=== PATIENT | female | born 1995 | race African-American/Black ===

== ENCOUNTER 2017-01-12 15:47 | Emergency (ER) | payer MEDICAID, OTHER ==
[~2017-01-12] VITALS: Ht 162.6 cm; Wt 49.4 kg
[~2017-01-12 15:47] MED LIST: ACETAMINOPHEN-1 EAC1 ORAL; ALBUTEROL SULF8.5 GM INH; ALBUTEROL2.5 MG/3 M HHN; ALBUTEROL2.5 MG/3 M INH; AMOXICILLIN500 MG ORAL; AUGMENTIN 875-1 EAC1 ORAL; AZITHROMYCIN250 MG ORAL; MACROBID100 MG ORAL; NKM; NORCO 5-325 TA1 EACH ORAL; ONDANSETRON ODT4 MG ORAL; PREDNISONE20 M1 PO; PREDNISONE20 MG ORAL; PROAIR HFA8.5 GM INH; PROMETHAZINE-C118 M1 ORAL; ZITHROMAX250 MG ORAL
[2017-01-12] MEDS ORDERED: Albuterol ud Inhalation HHN ONE (16:00)
[2017-01-12] MEDS ORDERED: PredniSONE 20mg tab ORAL ONE (16:00)
[2017-01-12] MEDS ORDERED: PSEUDOEPHEDRINE30 MG PO (16:02)
[2017-01-12] MEDS ORDERED: PREDNISONE20 MG ORAL (16:02)
[2017-01-12] MEDS ORDERED: VENTOLIN HFA18 GM INH (16:02)
[2017-01-12] MEDS ORDERED: FLONASE ALLERG9.9 ML NS (16:02)
--- NOTE | 2017-01-12 16:03 | Emergency Room Report ---
History of Present Illness General Chief Complaint: Asthma Source: Patient Present Illness HPI 21YOF [employer] patient with 2-3 days URI infection - sinus congestion, rhinorrhea, sore throat Today at work, wheezing, shortnes of breath History of Asthma. Non-smoker Doesnt have inhaler d/t no recent exacerbation No history of intubation/BIPAP Not on any other asthma meds Denies cough, fever/chills, sick contacts, other medical problems Allergies: Coded Allergies: IBUPROFEN (Verified Adverse Reaction, Mild, vomiting, 06/23/15) Patient History Past Medical History: asthma Past Surgical History: none Pertinent Family History: none Social History: Denies: smoking, alcohol use, drug use Last Menstrual Period: 01/02/17 Now: No : 0 Para: 0 Immunizations: UTD Reviewed Nursing Documentation: PMH: Agreed, PSxH: Agreed Nursing Documentation-PMH Past Medical History: No Stated History Hx Asthma: Yes Review of Systems All Other Systems: negative except mentioned in HPI Physical Exam Vital Signs Date Time Temp Pulse Resp B/P (MAP) Pulse Ox O2 Delivery O2 Flow Rate FiO2 01/12/17 15:50 98.2 107 20 126/78 99 Room Air Sp02 EP Interpretation: reviewed, normal General Appearance: normal inspection, well appearing, no apparent distress, alert, GCS 15, non-toxic Head: normocephalic, atraumatic Eyes: bilateral eye PERRL, bilateral eye EOMI ENT: normal ENT inspection, hearing grossly normal, normal voice Neck: normal inspection, full range of motion, supple, no bony tend Respiratory: normal inspection, speaking full sentences, wheezing Cardiovascular #1: regular rate, rhythm, no edema Gastrointestinal: normal inspection, normal bowel sounds, non tender, soft, no guarding, no hernia Genitourinary: no CVA tenderness Musculoskeletal: normal inspection, back normal, normal range of motion, Malaika' s Sign negative Neurologic: normal inspection, alert, oriented x3, responsive, frame feeder III-XII nml as tested, motor strength/tone normal, speech normal Psychiatric: normal inspection, judgement/insight normal, mood/affect normal Medical Decision Making Diagnostic Impression: Primary Impression: Asthma Qualified Codes: J45.21 - Mild intermittent asthma with (acute) exacerbation ER Course Mild asthma exacerbation VSS. Afebrile Not septic. No systemic illness Improved with nebs, steroids Rx ventolin, prednisone, sudafed/flonase for URI symptoms PMD followup as needed Return to ER for worsening symptoms Dc home Last Vital Signs Date Time Temp Pulse Resp B/P (MAP) Pulse Ox O2 Delivery O2 Flow Rate FiO2 01/12/17 15:50 98.2 107 20 126/78 99 Room Air Status: improved Disposition: HOME, SELF-CARE Condition: Improved Scripts Fluticasone Propionate (Flonase Allergy Relief) 9.9 Ml [place].susp 9.9 ML NS BID for 7 Days, #1 UNIT Prov: ALE BELL M.D. 01/12/17 Pseudoephedrine Hcl* (SUDAFED*) 30 Mg Tablet 30 MG PO Q6H for 3 Days, #10 TAB Prov: ALE BELL M.D. 01/12/17 Prednisone* (PREDNISONE*) 20 Mg Tablet 40 MG ORAL DAILY for 3 Days, #6 TAB Prov: ALE BELL M.D. 01/12/17 Albuterol Sulfate (VENTOLIN HFA) 18 Gm Hfa.aer.ad 1 PUFF INH EVERY 6 HOURS for 7 Days, #18 GM 0 Refills Prov: ALE BELL M.D. 01/12/17 Patient Instructions: Asthma, Adult Additional Instructions: - Take prednisone once daily next 3 days starting Monday - Use ventolin inhaler as needed for short of breath, wheezing - Use flonase nasal spray twice day to decongest your nose - Can also take sudafed DURING the day to decongest - Return to ER for worsening symptoms ALE BELL M.D. Jan 12, 2017 16:03
[2017-01-12 16:07] VITALS: BP 126/78
[2017-01-12 16:40] VITALS: BP 124/78
== END 2017-01-12 16:43 | disposition home or self-care (01) ==
LOC: EMR 16:05
DX: J45.21 Mild intermittent asthma with (acute) exacerbation (principal); Z88.6 Allergy status to analgesic agent
CPT/HCPCS: 94640; 94664; 99284

== ENCOUNTER 2017-04-12 09:08 | Emergency (ER) | payer MEDICAID ==
[~2017-04-12] VITALS: Ht 162.6 cm; Wt 50.8 kg
[~2017-04-12 09:08] MED LIST changes: +FLONASE ALLERG9.9 ML NS; +PSEUDOEPHEDRINE30 MG PO; +VENTOLIN HFA18 GM INH
[2017-04-12 09:20] VITALS: BP 120/86
[2017-04-12] MEDS ORDERED: Acetaminophen 500mg (ES) tab ORAL ONE (09:45)
[2017-04-12] MEDS ORDERED: Cyclobenzaprine 10mg Tab ORAL ONE (09:45)
[2017-04-12] MEDS ORDERED: TYLENOL EXTRA500 MG ORAL (09:53)
[2017-04-12] MEDS ORDERED: CYCLOBENZAPRINE10 MG ORAL (09:53)
[2017-04-12 10:07] VITALS: BP 130/89
--- NOTE | 2017-04-12 10:10 | Emergency Room Report ---
History of Present Illness General Chief Complaint: Pain Source: Patient Present Illness HPI 21-year-old female presents ED for evaluation. Patient states she's been having upper back pain for the last 2 weeks. Denies injury or trauma. 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 States pain is throbbing, 10 out of 10 , radiating from the upper back down the shoulder blade. Denies chest pain or shortness of breath. Pain was worse with twisting or bending. Her grandfather is a population geneticist and states that it is likely a muscle strain. No other aggravating relieving factors. Denies any other associated symptoms Allergies: Coded Allergies: IBUPROFEN (Verified Adverse Reaction, Mild, vomiting, 06/23/15) Patient History Past Medical History: asthma Past Surgical History: none Pertinent Family History: none Social History: Denies: smoking, alcohol use, drug use Last Menstrual Period: 04/08/17 Now: No : 0 Para: 0 Immunizations: UTD Reviewed Nursing Documentation: PMH: Agreed, PSxH: Agreed Nursing Documentation-PMH Past Medical History: No History, Except For Hx Asthma: Yes Review of Systems All Other Systems: negative except mentioned in HPI Physical Exam Vital Signs Date Time Temp Pulse Resp B/P (MAP) Pulse Ox O2 Delivery O2 Flow Rate FiO2 04/12/17 09:16 97.7 95 18 120/86 100 Room Air Sp02 EP Interpretation: reviewed, normal General Appearance: no apparent distress, alert, GCS 15, non-toxic Head: normocephalic Eyes: bilateral eye normal inspection, bilateral eye PERRL ENT: normal ENT inspection Neck: full range of motion, no bony tend, supple/symm/no masses Respiratory: chest non-tender, lungs clear, normal breath sounds, speaking full sentences Cardiovascular #1: regular rate, rhythm, no edema Gastrointestinal: normal inspection Rectal: deferred Genitourinary: no CVA tenderness Musculoskeletal: tender - TTP over L trapezius muscle Neurologic: alert, oriented x3, responsive, motor strength/tone normal, sensory intact, speech normal Psychiatric: normal inspection Skin: normal inspection Lymphatic: normal inspection Medical Decision Making Diagnostic Impression: Primary Impression: Upper back strain Qualified Codes: S29.012A - Strain of muscle and tendon of back wall of thorax , initial encounter Last Vital Signs Date Time Temp Pulse Resp B/P (MAP) Pulse Ox O2 Delivery O2 Flow Rate FiO2 04/12/17 09:20 97.7 18 120/86 100 Room Air 04/12/17 09:16 95 Status: improved Disposition: HOME, SELF-CARE Condition: Stable Scripts Cyclobenzaprine Hcl* (FLEXERIL*) 10 Mg Tablet 10 MG ORAL TID Y for Muscle Spasm, #20 TAB Prov: DANIEL ARRINGTON M.D. 04/12/17 Acetaminophen* (TYLENOL EXTRA STRENGTH*) 500 Mg Tablet 500 MG ORAL Q6H Y for Mild Pain/Temp > 100.5, #30 TAB 0 Refills Prov: DANIEL ARRINGTON M.D. 04/12/17 Referrals: DELGADO AYALA,REFERRING (PCP) Departure Forms: Return to Work Return to Work Date: Apr 14, 2017 Work Restrictions: No Heavy Lifting Patient Instructions: Muscle Strain, [id number] DANIEL ARRINGTON M.D. Apr 12, 2017 10:10
== END 2017-04-12 10:07 | disposition home or self-care (01) ==
LOC: EMR 09:50
DX: S29.012A Strain of muscle and tendon of back wall of thorax, initial encounter (principal); X58.XXXA Exposure to other specified factors, initial encounter; Y92.89 Other specified places as the place of occurrence of the external cause; Z88.6 Allergy status to analgesic agent
CPT/HCPCS: 99283

== ENCOUNTER 2018-06-10 11:08 | Emergency (ER) | payer MEDICAID, OTHER ==
[~2018-06-10] VITALS: Ht 162.6 cm; Wt 53.5 kg
[~2018-06-10 11:08] MED LIST changes: +CYCLOBENZAPRINE10 MG ORAL; +TYLENOL EXTRA500 MG ORAL
[2018-06-10 11:16] VITALS: BP 115/73
--- NOTE | 2018-06-10 11:26 | NUR ---
ED Nurse Note: Pt c/o left 4th digit laceration after accidentally cutting her finger with a slicer happened at work today. No active bleeding.
[2018-06-10] MEDS ORDERED: Lidocaine 1% 10mg/ml/Epi 0.005mg/ml 30ml vial INJ ONE ×2 (11:27→11:30)
--- NOTE | 2018-06-10 11:40 | NUR ---
ED Nurse Note: Left 4th digit soaked with lidocaine with epi x 10mins then cleaned with sterile water and wrapped with finger tube dressing.
--- NOTE | 2018-06-10 11:50 | Emergency Room Report ---
History of Present Illness General Chief Complaint: Laceration Source: Patient Present Illness HPI Patient was using a meat dresser. She is sliced off part of her left ring finger tip. Bleeding was controlled with direct pressure. She is here for wound care. No numbness or decreased range of motion. Tetanus is up-to-date. Patient is right-handed. She denies any other medical problems. Allergies: Coded Allergies: IBUPROFEN (Verified Adverse Reaction, Mild, vomiting, 06/23/15) Patient History Social History: Denies: smoking Social History Narrative Works at [employer] Now: No Reviewed Nursing Documentation: PMH: Agreed; PSxH: Agreed Nursing Documentation-PMH Past Medical History: No History, Except For Hx Asthma: Yes Review of Systems Constitutional: Denies: fever Musculoskeletal: Reports: see HPI Skin: Reports: see HPI Neurological: Denies: numbness Hematologic/Lymphatic: Reports: see HPI Physical Exam Vital Signs Date Time Temp Pulse Resp B/P (MAP) Pulse Ox O2 Delivery O2 Flow Rate FiO2 06/10/18 11:16 97.7 77 19 115/73 97 Room Air Sp02 EP Interpretation: reviewed, normal General Appearance: well appearing, no apparent distress Head: normocephalic, atraumatic Eyes: bilateral eye normal inspection, bilateral eye PERRL ENT: hearing grossly normal, normal voice, moist mucus membranes Neck: full range of motion, supple Respiratory: no respiratory distress, speaking full sentences Gastrointestinal: normal inspection Musculoskeletal: gait/station normal, normal range of motion Neurologic: alert, oriented x3, grossly normal Psychiatric: mood/affect normal Skin: other - Avulsion left ring finger 1/2 x 1 cm Medical Decision Making Diagnostic Impression: Primary Impression: Avulsion left ring finger Additional Impression: Finger avulsion Qualified Codes: S61.209A - Unspecified open wound of unspecified finger without damage to nail, initial encounter ER Course Patient presents after finger tip avulsion in a meat dresser. This needs cleaning and proper dressing. Wound was cleaned and dressed and the patient tolerated this well. Treatment plan discussed with patient. Patient stable for outpatient observation and treatment. Last Vital Signs Date Time Temp Pulse Resp B/P (MAP) Pulse Ox O2 Delivery O2 Flow Rate FiO2 06/10/18 12:38 98.0 68 20 122/80 99 Room Air Status: improved Disposition: HOME, SELF-CARE Condition: Improved Scripts Bacitracin (Bacitracin) 28.4 Gm Oint...g. 1 APPLIC TOPIC BID, #20 GM Prov: Shahab Barron MD 06/10/18 Acetaminophen (Tylenol) 325 Mg Tablet 650 MG ORAL Q6H PRN for Prn Pain/Headache/Temp > 101, #20 TAB 0 Refills Prov: Shahab Barron MD 06/10/18 Shahab Barron MD Jun 10, 2018 11:49
[2018-06-10] MEDS ORDERED: BACITRACIN15 GM TOPIC (11:53)
[2018-06-10] MEDS ORDERED: TYLENOL325 MG ORAL (11:53)
[2018-06-10 12:38] VITALS: BP 122/80
--- NOTE | 2018-06-10 12:38 | NUR ---
ED Nurse Note: Pt cleared by ER MD for discharge. ACI/prescription was given and explained to pt and verbalized understanding of teachings. All medical devices such as ID band removed. Pt is AAO x4, ambulatory and left with all personal belongings.
== END 2018-06-10 15:27 | disposition home or self-care (01) ==
LOC: EMR 12:30
DX: S61.205A Unspecified open wound of left ring finger without damage to nail, initial encounter (principal); W27.8XXA Contact with other nonpowered hand tool, initial encounter; Y92.511 Restaurant or cafe as the place of occurrence of the external cause; Y99.0 Civilian activity done for income or pay
CPT/HCPCS: 99283

== ENCOUNTER 2018-07-17 08:27 | Emergency (ER) | payer MEDICAID, OTHER ==
[~2018-07-17] VITALS: Ht 162.6 cm; Wt 52.6 kg
[~2018-07-17 08:27] MED LIST changes: +BACITRACIN15 GM TOPIC; +TYLENOL325 MG ORAL
--- NOTE | 2018-07-17 08:38 | NUR ---
ED Nurse Note: PT WALKED IN TO ER TODAY FROM HOME. AOX4. PT C/O NONPRODUCTIVE COUGH AND CONGESTION X 2 DAYS. LUNG SOUNDS CLEAR IN ALL LOBES. NO SIGNS OF RESPIRATORY DISTRESS OR RETRACTIONS NOTED. RR16 @ 99% O2 SAT ON RA.
[2018-07-17 08:39] VITALS: BP 120/82
--- NOTE | 2018-07-17 08:50 | Emergency Room Report ---
History of Present Illness General Chief Complaint: Upper Respiratory Illness Source: Patient Present Illness HPI Patient presents with complaints of cough and congestion over the past 2 days patient also has borderline asthma and to get exacerbated when she catches a cold Patient complains of congestion Denies any chest pain and eyes any vomiting or diarrhea Patient reports subjective fever 2 days ago improving now Denies any neck pain or photophobia denies any recent travel Allergies: Coded Allergies: IBUPROFEN (Verified Adverse Reaction, Mild, vomiting, 06/23/15) Patient History Past Medical History: see triage record Pertinent Family History: none Last Menstrual Period: 06/29/18 Now: No : 2 Para: 0 Reviewed Nursing Documentation: PMH: Agreed; PSxH: Agreed Nursing Documentation-PMH Past Medical History: No History, Except For Hx Asthma: Yes Review of Systems All Other Systems: negative except mentioned in HPI Physical Exam Vital Signs Date Time Temp Pulse Resp B/P (MAP) Pulse Ox O2 Delivery O2 Flow Rate FiO2 07/17/18 08:32 98.4 88 18 122/85 100 Room Air Sp02 EP Interpretation: reviewed, normal General Appearance: well appearing, no apparent distress Head: normocephalic, atraumatic Eyes: bilateral eye PERRL, bilateral eye EOMI ENT: hearing grossly normal, normal pharynx, TMs + canals normal, uvula midline Neck: full range of motion, supple, no meningismus, no bony tend Respiratory: lungs clear, normal breath sounds, no rhonchi, no respiratory distress, no retraction, no accessory muscle use Cardiovascular #1: normal peripheral pulses, regular rate, rhythm, no edema, no gallop, no JVD, no murmur Gastrointestinal: normal bowel sounds, non tender, soft, no mass, no organomegaly, non-distended, no guarding, no hernia, no pulsatile mass, no rebound Musculoskeletal: normal inspection Neurologic: oriented x3, responsive, weed inspector III-XII nml as tested, motor strength/ tone normal, sensory intact Psychiatric: mood/affect normal Skin: normal color, no rash, warm/dry, palpation normal Lymphatic: normal inspection, no adenopathy Medical Decision Making Diagnostic Impression: Primary Impression: Upper respiratory infection ER Course Multiple differentials including but not limited to pneumonia, bronchitis, asthma exacerbation considered Patient does not reveal any signs of respiratory distress does not meet criteria for acute imaging And will have initial conservative outpatient trial Last Vital Signs Date Time Temp Pulse Resp B/P (MAP) Pulse Ox O2 Delivery O2 Flow Rate FiO2 07/17/18 08:39 82 16 Room Air 07/17/18 08:39 98.2 120/82 99 Status: improved Disposition: HOME, SELF-CARE Condition: Improved Scripts Promethazine Hcl (PROMETHAZINE HCL*) 6.25 Mg/5 Ml Syrup 5 ML ORAL Q8H for 5 Days, #120 ML 0 Refills Prov: Julissa Winkler DO 07/17/18 Additional Instructions: Patient is provided with the discharge instructions notified to follow up with primary doctor in the next 2-3 days otherwise return to the er with any worsening symptoms. Please note that this report is being documented using [employer] technology. This can lead to erroneous entry secondary to incorrect interpretation by the dictating instrument. Julissa Winkler DO Jul 17, 2018 08:50
[2018-07-17] MEDS ORDERED: Ipratropium 0.02% Inh Soln 2.5ml UD HHN ONE (09:00)
[2018-07-17] MEDS ORDERED: Albuterol ud Inhalation HHN ONE (09:00)
[2018-07-17] MEDS ORDERED: PROMETHAZI6.25 MG/1 ORAL (09:19)
[2018-07-17 09:24] VITALS: BP 124/86
--- NOTE | 2018-07-17 09:25 | NUR ---
ED Nurse Note: PT LAYING PEACEFULLY IN BED IN NAD. AO4. PRESCRIPTION AND DISCHARGE PAPERWORK EXPLAINED TO PT. PT VERBALIZES UNDERSTANDING AND ALL QUESTIONS WERE ANSWERED. PRESCRIPTIONS AND DISCHARGE PAPERWORK GIVEN TO PT AND ID WRISTBAND REMOVED. PT WALKED OUT OF ER WITH STEADY GAIT AND ALL BELONGINGS.
== END 2018-07-17 09:26 | disposition home or self-care (01) ==
LOC: EMR 08:46
DX: J06.9 Acute upper respiratory infection, unspecified (principal); Z88.6 Allergy status to analgesic agent
CPT/HCPCS: 94640; 99284

== ENCOUNTER 2018-09-11 12:02 | Emergency (ER) | payer MEDICAID ==
[~2018-09-11] VITALS: Ht 162.6 cm; Wt 52.2 kg
[~2018-09-11 12:02] MED LIST changes: +PROMETHAZI6.25 MG/1 ORAL
--- NOTE | 2018-09-11 12:26 | NUR ---
ED Nurse Note: PT WALKED IN TO ER TODAY FROM HOME. AOX4. PT C/O PAINFUL "BUMP ON VAGINA" X 2 DAYS AGO. PT RATES PAIN 10/10. PT DENIES VAGINAL DISCHARGE, DRAINAGE, SWELLING, PAINFUL URINATION, BURNING SENSATION, OR INCREASE IN URINARY FREQUENCY.
[2018-09-11 12:28] VITALS: BP 108/74
--- NOTE | 2018-09-11 12:50 | Emergency Room Report ---
History of Present Illness General Chief Complaint: Skin Rash/Abscess Source: Patient Present Illness HPI 23-year-old female presents emergency department complaining of 9 out of 10 in severity pain, tenderness, progressive swelling to the localized area just under the left vaginal labia 3 days.She reports initially feeling a small bump that felt like a pimple which has progressed to a larger amount of swelling which is now painful even when she sitting. She reports palpation and sitting exacerbate her pain she denies any relieving factors. Patient denies vaginal discharge, lesions elsewhere on the body, swollen tender lymph nodes fevers or chills.Pt. reports that she may be . Allergies: Coded Allergies: IBUPROFEN (Verified Adverse Reaction, Mild, vomiting, 06/23/15) Patient History Past Medical History: see triage record Past Surgical History: none Last Menstrual Period: 09/02/18 Now: No - possible : 2 Para: 0 Reviewed Nursing Documentation: PMH: Agreed; PSxH: Agreed Nursing Documentation-PMH Past Medical History: No History, Except For Hx Asthma: Yes Review of Systems All Other Systems: negative except mentioned in HPI Physical Exam Vital Signs Date Time Temp Pulse Resp B/P (MAP) Pulse Ox O2 Delivery O2 Flow Rate FiO2 09/11/18 12:09 98.1 93 18 103/70 97 Room Air Sp02 EP Interpretation: reviewed, normal General Appearance: no apparent distress, alert, GCS 15, non-toxic Head: normocephalic, atraumatic Eyes: bilateral eye normal inspection, bilateral eye PERRL ENT: hearing grossly normal, normal voice Neck: full range of motion Respiratory: lungs clear, normal breath sounds, speaking full sentences Cardiovascular #1: regular rate, rhythm Musculoskeletal: gait/station normal, normal range of motion, non-tender Neurologic: alert, oriented x3, responsive, motor strength/tone normal, sensory intact, normal gait, speech normal, grossly normal Psychiatric: judgement/insight normal Skin: normal color, no rash, warm/dry, well hydrated, other - 1cm palpable abscess with some fulctuance just under the left external vaginal labia. some erythema is noted, moderate tenderness, no LAD, no blisters or vesicles. Lymphatic: no adenopathy Medical Decision Making PA Attestation Dr. Blake is my supervising Physician whom patient management has been discussed with. Diagnostic Impression: Primary Impression: Abscess ER Course 23-year-old female presents emergency department complaining of 9 out of 10 in severity pain, tenderness, progressive swelling to the localized area just under the left vaginal labia 3 days.She reports initially feeling a small bump that felt like a pimple which has progressed to a larger amount of swelling which is now painful even when she sitting. She reports palpation and sitting exacerbate her pain she denies any relieving factors. Patient denies vaginal discharge, lesions elsewhere on the body, swollen tender lymph nodes fevers or chills.Pt. reports that she may be . Ddx considered but are not limited to cellulitis, abscess, cystic acne, necrotizing fasciitis, insect bite. Vital signs: are WNL, pt. is afebrile H&PE are most consistent with vaginal labial abscess requiring I & D ORDERS: -Urine HCG: ED INTERVENTIONS: -I & D.------ PT. was very rude and disrespectful during the procedure. pt. was very aggravated about having to wait between steps of the procedures, and nurse bleacher [employer] needed to triage incoming patients off the ambulances with emergent medical conditions. I attempted to educated the pt. on the triage process and patient flow in the ED however pt. was not responsive. Pt. reported pain with initiation of the I &D procedure, several attempts were made to place additional anesthesia however pt. kept declining saying she is in a hurry and that it will take too long. DISCHARGE: At this time pt. is stable for d/c to home. Will provide printed patient care instructions, and any necessary prescriptions. Care plan and follow up instructions have been discussed with the patient prior to discharge. Last Vital Signs Date Time Temp Pulse Resp B/P (MAP) Pulse Ox O2 Delivery O2 Flow Rate FiO2 09/11/18 12:28 98.2 84 17 108/74 99 Room Air Disposition: HOME, SELF-CARE Condition: Stable Scripts Mupirocin* (MUPIROCIN*) 22 Gm Oint...g. 1 APPLIC TOPIC THREE TIMES A DAY, #22 GM Prov: Dayna Her 09/11/18 Trimethoprim/Sulfamethoxazole 160/800* (BACTRIM DS TABLET*) 1 Each Tablet 1 TAB ORAL TWICE A DAY for 7 Days, #14 TAB Prov: Dayna Her 09/11/18 Cephalexin* (KEFLEX*) 500 Mg Capsule 500 MG ORAL EVERY 12 HOURS for 7 Days, #14 CAP 0 Refills Prov: Dayna Her 09/11/18 Patient Instructions: Abscess Additional Instructions: Take medications as directed. Follow up with a Primary Care Provider in 3-5 days, even if your symptoms have resolved. --Please review list of primary care clinics, if you do not already have a primary care provider Return sooner to ED if new symptoms occur, or current symptoms become worse. - Please note that this Emergency Department Report was dictated using [employer] media buyer technology software, occasionally this can lead to erroneous entry secondary to interpretation by the dictation equipment. Dayna Her Sep 11, 2018 12:50
[2018-09-11] MEDS ORDERED: Bacitracin Oint UD TOPIC ONE (13:00)
[2018-09-11] MEDS ORDERED: Lidocaine 2% 20mg/ml/Epi 0.005mg/ml 20ml vial INJ ONE (13:00)
[2018-09-11] MEDS ORDERED: MUPIROCIN22 GM TOPIC (14:16)
[2018-09-11] MEDS ORDERED: CEPHALEXIN500 MG ORAL (14:16)
[2018-09-11] MEDS ORDERED: BACTRIM DS TAB1 EAC1 ORAL (14:16)
[2018-09-11 14:35] VITALS: BP 112/76
--- NOTE | 2018-09-11 14:35 | NUR ---
ED Nurse Note: PT SITTING PEACEFULLY IN BED IN NAD. AOX4. PRESCRIPTIONS AND DISCHARGE PAPERWORK EXPLAINED TO PT. PT VERBALIZES UNDERSTANDING AND ALL QUESTIONS ANSWERED. PRESCRIPTIONS AND DISCHARGE PAPERWORK GIVEN TO PT AND ID WRISTBAND REMOVED. PT WALKED OUT OF ER WITH STEADY GAIT AND ALL BELONGINGS.
== END 2018-09-11 14:45 | disposition home or self-care (01) ==
LOC: EMR 12:38
DX: N76.0 Acute vaginitis (principal); Z88.6 Allergy status to analgesic agent
CPT/HCPCS: 81025; 99282

== ENCOUNTER 2018-10-03 18:56 | Emergency (ER) | payer MEDICAID ==
[~2018-10-03] VITALS: Ht 162.6 cm; Wt 50.8 kg
[~2018-10-03 18:56] MED LIST changes: +BACTRIM DS TAB1 EAC1 ORAL; +CEPHALEXIN500 MG ORAL; +MUPIROCIN22 GM TOPIC
[2018-10-03 19:07] VITALS: BP 124/85
--- NOTE | 2018-10-03 19:14 | NUR ---
ED Nurse Note:pt. came with vaginal itching burning, urine sent to labs
--- NOTE | 2018-10-03 19:15 | NUR ---
ED Nurse Note: Received Report from Ana/ANN. Pt is A/O X4. Will continue to minitor.
--- NOTE | 2018-10-03 19:40 | Emergency Room Report ---
History of Present Illness General Chief Complaint: Vaginal Source: Patient Present Illness HPI 23-year-old female presents to the emergency department complaining of new onset of vaginal itching along with thick white discharge 2 days. Patient reports itchiness is worse at nighttime. Patient denies odor she reports recent antibiotic use after having a sore throat. Patient denies fevers, chills , suspicion of or STD. Patient denies external genital lesions or swollen tender lymph nodes. She denies recent unprotected intercourse. Patient has not attempted to try any npio-wkn-kywygup remedies. Patient reports that when it of itching revived some minimal relief she states after itching/scratching her symptoms get exacerbated.Denies abdominal pain or tenderness. Allergies: Coded Allergies: IBUPROFEN (Verified Adverse Reaction, Mild, vomiting, 06/23/15) Patient History Past Medical History: see triage record Past Surgical History: none Pertinent Family History: none Now: No Reviewed Nursing Documentation: PMH: Agreed; PSxH: Agreed Nursing Documentation-PMH Hx Asthma: Yes Review of Systems All Other Systems: negative except mentioned in HPI Physical Exam Vital Signs Date Time Temp Pulse Resp B/P (MAP) Pulse Ox O2 Delivery O2 Flow Rate FiO2 10/03/18 19:00 98.2 89 15 126/87 (100) 100 Room Air Sp02 EP Interpretation: reviewed, normal General Appearance: no apparent distress, alert, GCS 15, non-toxic Head: normocephalic, atraumatic Eyes: bilateral eye normal inspection, bilateral eye PERRL ENT: hearing grossly normal, normal voice Neck: full range of motion Respiratory: lungs clear, normal breath sounds, speaking full sentences Cardiovascular #1: regular rate, rhythm Gastrointestinal: normal bowel sounds, non tender, soft, non-distended, no guarding Genitourinary: normal inspection, no CVA tenderness, adnexa normal, other - pelvic deferred by pt. Musculoskeletal: gait/station normal, normal range of motion, non-tender Neurologic: alert, oriented x3, responsive, motor strength/tone normal, sensory intact, normal gait, speech normal, grossly normal Psychiatric: judgement/insight normal Skin: normal color, no rash, warm/dry, well hydrated Lymphatic: no adenopathy Medical Decision Making PA Attestation Dr. Barron is my supervising Physician whom patient management has been discussed with. Diagnostic Impression: Primary Impression: Vaginitis and vulvovaginitis ER Course 23-year-old female presents to the emergency department complaining of new onset of vaginal itching along with thick white discharge 2 days. Patient reports itchiness is worse at nighttime. Patient denies odor she reports recent antibiotic use after having a sore throat. Patient denies fevers, chills , suspicion of or STD. Patient denies external genital lesions or swollen tender lymph nodes. She denies recent unprotected intercourse. Patient has not attempted to try any sdjs-akl-vcbtwuz remedies. Patient reports that when it of itching revived some minimal relief she states after itching/scratching her symptoms get exacerbated.Denies abdominal pain or tenderness. Ddx considered but are not limited to UTi , Pyelo, STI, Stone, Cystitis, vaginal laceration, vaginitis. Vital signs: are WNL, pt. is afebrile H& PE are most consistent with: Vaginitis -- will cover for BV and yeast ORDERS: none will treat clinically based on HPI and PE. ED INTERVENTIONS: -Diflucan PO DISCHARGE: At this time pt. is stable for d/c to home. Will provide printed patient care instructions, and any necessary prescriptions. Care plan and follow up instructions have been discussed with the patient prior to discharge. discussed with the patient prior to discharge. Last Vital Signs Date Time Temp Pulse Resp B/P (MAP) Pulse Ox O2 Delivery O2 Flow Rate FiO2 10/03/18 19:00 98.2 89 15 126/87 (100) 100 Room Air Status: improved Disposition: HOME, SELF-CARE Condition: Stable Scripts Metronidazole* (FLAGYL*) 500 Mg Tablet 500 MG ORAL BID for 7 Days, #14 TAB 0 Refills Prov: Dayna Her 10/05/18 Fluconazole (FLUCONAZOLE) 100 Mg Tablet 100 MG ORAL DAILY for 3 Days, #3 TAB 0 Refills Prov: Dayna Her 10/03/18 Referrals: DELGADO AYALA,REFERRING (PCP) Patient Instructions: Vaginitis, Uebc-qj-Otzp Additional Instructions: Take medications as directed. Follow up with a Primary Care Provider or PENAL OFFICER in 3-5 days, even if your symptoms have resolved. --Please review list of primary care clinics, if you do not already have a primary care provider Return sooner to ED if new symptoms occur, or current symptoms become worse. - Please note that this Emergency Department Report was dictated using [employer] controller technology software, occasionally this can lead to erroneous entry secondary to interpretation by the dictation equipment. Dayna Her October 03, 2018 19:40
[2018-10-03] MEDS ORDERED: FLUCONAZOLE100 MG ORAL (19:41)
[2018-10-03] MEDS ORDERED: Fluconazole 100mg tab ORAL ONE (19:45)
[2018-10-03 19:55] VITALS: BP 124/85
--- NOTE | 2018-10-03 19:55 | NUR ---
ER DISCHARGE NOTE: Patient is cleared to be discharged per Robles. Mcintosh /KYUNG. Pt is a o x4 on room air with stable vital signs. Pt was given D/C and prescription instructions and was able to verbalize understanding. Pt's ID band removed. pt is able to ambulate with steady gait and took all belongings.
[2018-10-05] MEDS ORDERED: METRONIDAZOLE500 MG ORAL (19:11)
[2019-02-27] MEDS ORDERED: ROBAXIN-750750 MG PO (21:02)
[2019-02-27] MEDS ORDERED: IBUPROFEN600 MG ORAL (21:02)
[2019-02-27] MEDS ORDERED: ACETAMINOPHEN325 M1 ORAL (21:02)
== END 2018-10-03 19:55 | disposition home or self-care (01) ==
LOC: EMR 19:16
DX: N76.0 Acute vaginitis (principal); Z88.6 Allergy status to analgesic agent
CPT/HCPCS: 99282

== ENCOUNTER 2019-04-05 18:25 | Emergency (ER) | payer MEDICAID ==
[~2019-04-05] VITALS: Ht 165.1 cm; Wt 50.8 kg
[~2019-04-05 18:25] MED LIST changes: +ACETAMINOPHEN325 M1 ORAL; +FLUCONAZOLE100 MG ORAL; +IBUPROFEN600 MG ORAL; +METRONIDAZOLE500 MG ORAL; +ROBAXIN-750750 MG PO
--- NOTE | 2019-04-05 18:41 | NUR ---
ED Nurse Note: A/OX4. PT REPORTS OF HAVING ITCHINESS AT THE PERINEAL AREA/VAGINAL AREA WITH WHITE DISCHARGE X COUPLE OF DAYS. LAST UNPROTECTED SEXUAL ACTIVITY WAS ABOUT A MONTH AGO. NO REDNESS OR SWELLING NOTED.
[2019-04-05 18:42] VITALS: BP 116/77
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
[2019-04-05] MEDS ORDERED: FLUCONAZOLE100 MG ORAL (18:57)
[2019-04-05] MEDS ORDERED: TRIAMCINOLONE A15 G1 TP (18:57)
[2019-04-05] MEDS ORDERED: CLOTRIMAZOLE15 GM TOPIC (18:57)
--- NOTE | 2019-04-05 19:05 | NUR ---
HAND-OFF: Report given to ANN RODRIGUEZ.
[2019-04-05 19:08] VITALS: BP 116/77
--- NOTE | 2019-04-05 19:08 | NUR ---
ED Nurse Note: Pt cleared by ERMD for discharge. DC instructions/prescription was given and explained to pt and verbalized understanding of teachings. All medical deviecs such as ID band removed. Pt is AAO x4, ambulatory and left with all personal belongings.
== END 2019-04-05 19:08 | disposition home or self-care (01) ==
LOC: EMR 18:55
DX: N76.0 Acute vaginitis (principal); L25.9 Unspecified contact dermatitis, unspecified cause; J45.909 Unspecified asthma, uncomplicated; Z88.6 Allergy status to analgesic agent
CPT/HCPCS: 99282

== ENCOUNTER 2019-04-29 17:56 | Emergency (ER) | payer MEDICAID ==
[~2019-04-29] VITALS: Ht 165.1 cm; Wt 50.3 kg
[~2019-04-29 17:56] MED LIST changes: +CLOTRIMAZOLE15 GM TOPIC; +TRIAMCINOLONE A15 G1 TP
[2019-04-29 18:30] VITALS: BP 115/79
[2019-04-29 18:47] LABS: APPEARANCE,URINE CLOUDY; BILIRUBIN, URINE NEGATIVE (NEGATIVE); COLOR,URINE AMBER; GLUCOSE, URINE (UA) NEGATIVE (NEGATIVE); KETONES,URINE 1+ (NEGATIVE); LEUKOCYTE ESTERASE ,URINE 3+ (NEGATIVE); NITRITE,URINE NEGATIVE (NEGATIVE); PH,URINE 5 (4.5-8.0); PROTEIN,URINE 2+ (NEGATIVE); UROBILINOGEN,URINE NORMAL MG/DL (0.0-1.0)
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
[2019-04-29] MEDS ORDERED: NITROFURANTOIN100 M2 ORAL (19:03)
[2019-04-29] MEDS ORDERED: DOXYCYCLINE HY100 M2 PO (19:03)
[2019-04-29 19:13] VITALS: BP 115/79
== END 2019-04-29 19:14 | disposition home or self-care (01) ==
LOC: EMR 18:41
DX: A74.9 Chlamydial infection, unspecified (principal); N39.0 Urinary tract infection, site not specified; Z88.6 Allergy status to analgesic agent
CPT/HCPCS: 81003; 81025; 87086; Z7502; 99283

== ENCOUNTER 2019-07-21 11:09 | Emergency (ER) | payer MEDICAID ==
[~2019-07-21] VITALS: Ht 162.6 cm; Wt 51.3 kg
[~2019-07-21 11:09] MED LIST changes: +DOXYCYCLINE HY100 M2 PO; +NITROFURANTOIN100 M2 ORAL
[2019-07-21 11:18] VITALS: BP 120/84
[2019-07-21] MEDS ORDERED: Solu-MEDROL 125mg Inj IM ONE (11:30)
[2019-07-21] MEDS ORDERED: Ipratropium 0.02% Inh Soln 2.5ml UD HHN ONE (11:30)
[2019-07-21] MEDS ORDERED: Albuterol ud Inhalation HHN ONE (11:30)
[2019-07-21 12:19] VITALS: BP 115/84
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
[2019-07-21] MEDS ORDERED: PREDNISONE20 MG ORAL (12:20)
[2019-07-21] MEDS ORDERED: IBUPROFEN600 MG ORAL (12:20)
[2019-07-21] MEDS ORDERED: ALBUTEROL SULF8.5 GM INH (12:20)
== END 2019-07-21 12:18 | disposition home or self-care (01) ==
LOC: EMR 11:40
DX: J45.901 Unspecified asthma with (acute) exacerbation (principal); J06.9 Acute upper respiratory infection, unspecified; Z88.6 Allergy status to analgesic agent
CPT/HCPCS: 96372; J2930; Z7502; 99284